=== PATIENT | female | born 1950 | race Hispanic/Latino ===

== ENCOUNTER 2018-08-15 17:21 | Emergency (ER) | payer MEDICARE, BC, OTHER ==
[2018-08-15] MEDS ORDERED: Sodium Chloride 0.9% 1,000 ML IV STA ×2 (18:08→19:14)
[2018-08-15 18:14] LABS: BASO % 0.5 % (0.0-2.0); EOS % 0.2 % (0.0-4.0); HEMOGLOBIN 14.3 g/dL (12.0-16.0); LYMPH # 0.9 K/uL (1.0-4.3); LYMPH % 13.3 % (20.0-40.0); MEAN CELL VOLUME 91.8 fl (81.0-99.0); MEAN CORPUSCULAR HEMOGLOBIN 31.8 pg (27.0-31.0); MEAN CORPUSCULAR HGB CONC 34.6 g/dL (33.0-37.0); MONO # 0.3 K/uL (0.0-0.8); NEUT # 5.7 K/uL (1.8-7.0); RBC 4.51 Mil/uL (3.80-5.20)
[2018-08-15 18:18] LABS: VENOUS BLOOD GAS PCO2 26 mmHg (40-60); VENOUS BLOOD GAS PO2 36 mm/Hg (30-55)
[2018-08-15 18:22] LABS: BLOOD UREA NITROGEN 15 mg/dl (7-17); CALCIUM 9.5 mg/dL (8.4-10.2); GFR NON-AFRICAN AMERICAN > 60
[2018-08-15 18:33] LABS: URINE BILIRUBIN NEGATIVE (NEGATIVE); URINE BLOOD NEGATIVE (NEGATIVE); URINE CLARITY CLEAR (Clear); URINE COLOR YELLOW (YELLOW); URINE GLUCOSE (UA) NEG (NEGATIVE); URINE LEUKOCYTE ESTERASE NEG Leu/uL (Negative); URINE PROTEIN NEGATIVE (NEGATIVE); URINE UROBILINOGEN 0.2-1.0 mg/dL (0.2-1.0)
--- NOTE | 2018-08-15 19:06 | ED PDOC ---
HPI: General Adult Time Seen by Provider: 08/15/18 17:32 Chief Complaint (Nursing): Abdominal Pain Chief Complaint (Provider): Weakness, Shaking, Vomiting, Dizziness, Headache History Per: Patient History/Exam Limitations: no limitations Onset/Duration Of Symptoms: Hrs (this morning) Current Symptoms Are (Timing): Still Present Additional Complaint(s): 68 year old female presents to the ED for evaluation of progressively worsening weakness since waking up this morning associated with shaking, vomiting, and dizziness that developed throughout the course of the day. Patient states she is visiting from [place] and was fine last night, but woke up this morning with her symptoms and eventually became so weak that she could not stand. Additionally, patient states she developed a headache associated with photophobia which feels similar to a migraine she had twenty years ago. She also notes feeling dehydrated now. Otherwise, denies chest pain and shortness of breath. PMD: guadalupe irizarry Past Medical History Reviewed: Historical Data, Nursing Documentation, Vital Signs Vital Signs: Last Vital Signs Temp 98.3 F 08/15/18 17:25 Pulse 95 H 08/15/18 17:25 Resp 19 08/15/18 17:25 BP 161/96 H 08/15/18 17:25 Pulse Ox 100 08/15/18 17:25 - Medical History PMH: Migraine (last one 20 years ago) - Surgical History Surgical History: No Surg Hx - Family History Family History: States: Unknown Family Hx - Social History Current smoker - smoking cessation education provided: No Alcohol: Social Drugs: Denies - Immunization History Hx Tetanus Toxoid Vaccination: No Hx Influenza Vaccination: No Hx Pneumococcal Vaccination: No - Allergies Allergies/Adverse Reactions: Allergies Allergy/AdvReac Type Severity Reaction Status Date / Time No Known Allergies Allergy Verified 08/15/18 17:27 Review of Systems ROS Statement: Except As Marked, All Systems Reviewed And Found Negative Constitutional: Positive for: Weakness, Other (shaking) Cardiovascular: Negative for: Chest Pain Respiratory: Negative for: Shortness of Breath Gastrointestinal: Positive for: Vomiting Neurological: Positive for: Headache (with photophobia), Dizziness Physical Exam - Reviewed Nursing Documentation Reviewed: Yes Vital Signs Reviewed: Yes - Physical Exam Appears: Positive for: No Acute Distress (but appears tired and is shaking) Head Exam: Positive for: ATRAUMATIC, NORMAL INSPECTION, NORMOCEPHALIC Skin: Positive for: Normal Color, Warm, Dry Eye Exam: Positive for: EOMI, Normal appearance, PERRL ENT: Positive for: Normal ENT Inspection Neck: Positive for: Normal, Painless ROM, Supple Cardiovascular/Chest: Positive for: Regular Rate, Rhythm Respiratory: Positive for: Normal Breath Sounds. Negative for: Respiratory Distress Gastrointestinal/Abdominal: Positive for: Normal Exam, Soft. Negative for: Tenderness Back: Positive for: Normal Inspection Extremity: Positive for: Normal ROM (all extremities) Neurological/Psych: Positive for: Awake, Alert, Oriented (x3), culinary artist II-XII (intact). Negative for: Motor/Sensory Deficits - Laboratory Results Result Diagrams: 08/15/18 18:10 08/15/18 18:10 Lab Results: pO2 36 mm/Hg (30-55) 08/15/18 18:12 VBG pH 7.60 (7.32-7.43) H 08/15/18 18:12 VBG pCO2 26 mmHg (40-60) L 08/15/18 18:12 VBG HCO3 28.4 mmol/L 08/15/18 18:12 VBG Total CO2 26.3 mmol/L (22-28) 08/15/18 18:12 VBG O2 Sat (Calc) 79.2 % (40-65) H 08/15/18 18:12 VBG Base Excess 5.0 mmol/L (0.0-2.0) H 08/15/18 18:12 VBG Potassium 3.4 mmol/L (3.6-5.2) L 08/15/18 18:12 Sodium 137.0 mmol/L (132-148) 08/15/18 18:12 Chloride 100.0 mmol/L (98-107) 08/15/18 18:12 Glucose 158 mg/dL (65-105) H 08/15/18 18:12 Lactate 2.0 mmol/L (0.7-2.1) 08/15/18 18:12 FiO2 21.0 % 08/15/18 18:12 Blood Gas Comments Lac=2.0 08/15/18 18:12 Crit Value Called To walker Ba 08/15/18 18:12 Crit Value Called By 08/15/18 18:12 Crit Value Read Back Y 08/15/18 18:12 Blood Gas Notified Time 1818 04/07/19 18:12 Troponin I < 0.0120 ng/mL (0.00-0.120) 08/15/18 18:10 Urine Color Yellow (YELLOW) 08/15/18 18:23 Urine Clarity Clear (Clear) 08/15/18 18:23 Urine pH 8.0 (5.0-8.0) 08/15/18 18:23 Ur Specific [place] 1.017 (1.003-1.030) 08/15/18 18:23 Urine Protein Negative mg/dL (NEGATIVE) 08/15/18 18:23 Urine Glucose (UA) Neg mg/dL (NEGATIVE) 08/15/18 18:23 Urine Ketones 20 mg/dL (NEGATIVE) 08/15/18 18:23 Urine Blood Negative (NEGATIVE) 08/15/18 18:23 Urine Nitrate Negative (NEGATIVE) 08/15/18 18:23 Urine Bilirubin Negative (NEGATIVE) 08/15/18 18:23 Urine Urobilinogen 0.2-1.0 mg/dL (0.2-1.0) 08/15/18 18:23 Ur Leukocyte Esterase Neg Marquita/uL (Negative) 08/15/18 18:23 Urine RBC (Auto) 3 /hpf (0-3) 08/15/18 18:23 Urine Microscopic WBC < 1 /hpf (0-5) 08/15/18 18:23 - ECG O2 Sat by Pulse Oximetry: 100 (RA) Pulse Ox Interpretation: Normal Medical Decision Making Medical Decision Making: Time: 1752 Initial Impression: workup for dizziness, headache, and vomiting; patient hypertensive in triage Initial Plan: --Labs including cardiac enzymes --Zofran, Toradol, and IV fluids --Consider imaging if symptoms not improved 1849 At this time, patient notes that her headache is worsening, so discussed possibility of CT head. Patient states she is against getting a CT and would rather wait to see if the medications work. 1899 Patient care endorsed to Dr. Faulkner pending reevaluation and possible imaging. Scribe Attestation: Documented by Marianela Diamond, acting as a scribe for Walker Medel MD. Provider Scribe Attestation: All medical record entries made by the Scribe were at my direction and personally dictated by me. I have reviewed the chart and agree that the record accurately reflects my personal performance of the history, physical exam, medical decision making, and the department course for this patient. I have also personally directed, reviewed, and agree with the discharge instructions and disposition. Disposition - Clinical Impression Clinical Impression: Headache, Abdominal pain - Patient ED Disposition Is Patient to be Admitted: No - Disposition Disposition: Routine/Home Disposition Time: 19:15 Condition: IMPROVED Additional Instructions: Follow up with primary medical doctor. Return to the emergency department if symptoms worsen or if new symptoms develop. Instructions: Migraine Headache (DC), Nausea and Vomiting, Adult (DC) Forms: [employer] ([place]an) Print Language: GERMAN
--- NOTE | 2018-08-15 19:36 | ED PDOC ---
- Laboratory Results Result Diagrams: 08/15/18 18:10 08/15/18 18:10 Lab Results: pO2 36 mm/Hg (30-55) 08/15/18 18:12 VBG pH 7.60 (7.32-7.43) H 08/15/18 18:12 VBG pCO2 26 mmHg (40-60) L 08/15/18 18:12 VBG HCO3 28.4 mmol/L 08/15/18 18:12 VBG Total CO2 26.3 mmol/L (22-28) 08/15/18 18:12 VBG O2 Sat (Calc) 79.2 % (40-65) H 08/15/18 18:12 VBG Base Excess 5.0 mmol/L (0.0-2.0) H 08/15/18 18:12 VBG Potassium 3.4 mmol/L (3.6-5.2) L 08/15/18 18:12 Sodium 137.0 mmol/L (132-148) 08/15/18 18:12 Chloride 100.0 mmol/L (98-107) 08/15/18 18:12 Glucose 158 mg/dL (65-105) H 08/15/18 18:12 Lactate 2.0 mmol/L (0.7-2.1) 08/15/18 18:12 FiO2 21.0 % 08/15/18 18:12 Blood Gas Comments Lac=2.0 08/15/18 18:12 Crit Value Called To walker Ba 08/15/18 18:12 Crit Value Called By 22 08/15/18 18:12 Crit Value Read Back Y 08/15/18 18:12 Blood Gas Notified Time 1818 08/15/18 18:12 Troponin I < 0.0120 ng/mL (0.00-0.120) 08/15/18 18:10 Urine Color Yellow (YELLOW) 08/15/18 18:23 Urine Clarity Clear (Clear) 08/15/18 18:23 Urine pH 8.0 (5.0-8.0) 08/15/18 18:23 Ur Specific [place] 1.017 (1.003-1.030) 08/15/18 18:23 Urine Protein Negative mg/dL (NEGATIVE) 08/15/18 18:23 Urine Glucose (UA) Neg mg/dL (NEGATIVE) 08/15/18 18:23 Urine Ketones 20 mg/dL (NEGATIVE) 08/15/18 18:23 Urine Blood Negative (NEGATIVE) 08/15/18 18:23 Urine Nitrate Negative (NEGATIVE) 08/15/18 18:23 Urine Bilirubin Negative (NEGATIVE) 08/15/18 18:23 Urine Urobilinogen 0.2-1.0 mg/dL (0.2-1.0) 08/15/18 18:23 Ur Leukocyte Esterase Neg Marquita/uL (Negative) 08/15/18 18:23 Urine RBC (Auto) 3 /hpf (0-3) 08/15/18 18:23 Urine Microscopic WBC < 1 /hpf (0-5) 08/15/18 18:23 - ECG O2 Sat by Pulse Oximetry: 100 (RA) Medical Decision Making Medical Decision Makin Patient care endorsed to this provider from Dr. Medel pending reevaluation. Scribe Attestation: Documented by Marianela Diamond, acting as a scribe for Jeffy Faulkner MD. Provider Scribe Attestation: All medical record entries made by the Scribe were at my direction and personally dictated by me. I have reviewed the chart and agree that the record accurately reflects my personal performance of the history, physical exam, medical decision making, and the department course for this patient. I have also personally directed, reviewed, and agree with the discharge instructions and disposition. Disposition - Clinical Impression Clinical Impression: Headache, Abdominal pain - Disposition Condition: IMPROVED Additional Instructions: Follow up with primary medical doctor. Return to the emergency department if symptoms worsen or if new symptoms develop. Instructions: Migraine Headache (DC), Nausea and Vomiting, Adult (DC) Forms: [employer] (Greek) Print Language: WOLOF
[2018-08-15 20:51] VITALS: BP 138/82; PULSE 74; RESP 16; TEMP 98.6; O2SAT 98
== END 2018-08-15 20:07 | disposition home or self-care (01) ==
LOC: H.ER 17:21
DX: R51 Headache (principal); R10.9 Unspecified abdominal pain; I10 Essential (primary) hypertension
CPT/HCPCS: 80048; 81003; 82803; 84484; 85025; 96361; 96374; 96375; 99283; J1885; J2405; J2765; J7030